=== PATIENT | male | born 1965 | race African-American/Black ===

== ENCOUNTER 2021-09-09 08:39 | Inpatient (IN) | payer MEDICAID ==
[~2021-09-09] VITALS: Ht 167.6 cm; Wt 81.2 kg
[~2021-09-09 08:39] MED LIST: ATEN-60; BENA40TA8; HYDR25TA4
[2021-09-09] MEDS ORDERED: ASPirin 325 MG TAB PO ONE (09:15)
[2021-09-09] MEDS ORDERED: NITROGLYCERIN 0.4 MG SL TAB SL ONE (09:15)
[2021-09-09 09:35] LABS: Basophils # (auto) 0 10 ^3/uL (0-0.2); Basophils % (auto) 0.3 % (0.0-2.0); Eosinophils # (auto) 0 10 ^3/uL (0-0.8); Eosinophils % (auto) 0.5 % (0.0-7.0); Hematocrit 31.9 % (41.0-53.0); Hemoglobin 10.4 g/dL (13.5-17.5); Lymphocytes # (auto) 0.2 10 ^3/uL (0.4-5.4); Lymphocytes % (auto) 3.5 % (10.0-50.0); Mean Corpuscular Hemoglobin 29.5 pg (28.0-32.0); Mean Corpuscular Hgb Conc. 32.7 g/dL (32.0-36.0); Mean Corpuscular Volume 90.2 fL (80.0-100.0); Monocytes # (auto) 0.7 10 ^3/uL (0-1.3); Monocytes % (auto) 10.7 % (0.0-12.0); Neutrophils # (auto) 5.3 10 ^3/uL (1.6-8.6); Nucleated Red Blood Cells % 0.1 %; Red Blood Cells 3.54 10^6/uL (4.5-5.90); White Blood Cell 6.3 10^3/uL (4.4-10.8)
[2021-09-09 09:57] LABS: Albumin 3.4 g/dL (3.4-5.0); Calcium 8.6 mg/dL (8.5-10.1); Magnesium 1.7 mg/dL (1.6-2.6); Partial Thromboplastin Time 26.6 sec (24.6-33.4); Potassium 4.1 mmol/L (3.5-5.1)
[2021-09-09] MEDS ORDERED: CARVEDILOL 3.125 MG TAB PO ONE (10:00)
[2021-09-09] MEDS ORDERED: amLODIPine BESYLATE 5 MG TAB PO ONE (10:00)
[2021-09-09 10:02] LABS: Bilirubin, Total 0.5 mg/dL (0.2-1.0)
[2021-09-09] MEDS ORDERED: SODIUM CHLORIDE 0.9% 1,000 ML IV ONE (10:30)
[2021-09-09] MEDS ORDERED: LABETALOL INJECTION 250 MG in SODIUM CHL 0.9% 200 ML IV ONE (11:30)
[2021-09-09] MEDS ORDERED: hydrALAZINE HCL 20 MG/ML VL IV ONE (12:15)
[2021-09-09] MEDS ORDERED: MORPHINE SULFATE INJ 2 MG/ml SYRG IV PRN (15:00)
[2021-09-09] MEDS ORDERED: ALBUTEROL SULF HFA 90MCG INH 200DOSE IN PRN (15:00)
[2021-09-09] MEDS ORDERED: NITROGLYCERIN 0.4 MG SL TAB SL PRN (15:00)
[2021-09-09 15:08] LABS: Magnesium 1.8 mg/dL (1.6-2.6); Phosphorus 4.1 mg/dL (2.5-4.90)
[2021-09-09] MEDS: hydrALAZINE HCL 20 MG/ML VL IV PRN (17:01)
[2021-09-09 20:00] VITALS: BP 178/109
[2021-09-09] MEDS: HEPARIN SODIUM (PORCINE) 5000 UNITS/ML 1ML VIAL SC SCH (20:10)
[2021-09-09 21:35] LABS: Basophils # (auto) 0 10 ^3/uL (0-0.2); Basophils % (auto) 0.6 % (0.0-2.0); Eosinophils # (auto) 0 10 ^3/uL (0-0.8); Eosinophils % (auto) 0.1 % (0.0-7.0); Hematocrit 35.3 % (41.0-53.0); Hemoglobin 11.6 g/dL (13.5-17.5); Lymphocytes # (auto) 0.3 10 ^3/uL (0.4-5.4); Mean Corpuscular Hemoglobin 29.1 pg (28.0-32.0); Mean Corpuscular Hgb Conc. 32.8 g/dL (32.0-36.0); Mean Corpuscular Volume 88.6 fL (80.0-100.0); Monocytes # (auto) 0.8 10 ^3/uL (0-1.3); Monocytes % (auto) 14.3 % (0.0-12.0); Neutrophils # (auto) 4.3 10 ^3/uL (1.6-8.6); Nucleated Red Blood Cells % 0.4 %; Red Blood Cells 3.99 10^6/uL (4.5-5.90); Red Cell Distribution Width 14.2 % (11.8-14.3); White Blood Cell 5.5 10^3/uL (4.4-10.8)
[2021-09-09 21:41] LABS: Albumin 3.4 g/dL (3.4-5.0)
[2021-09-09 21:45] LABS: Bilirubin, Total 0.5 mg/dL (0.2-1.0); CRP High Sensitivity 0.72 mg/dL (< 0.3); Total Protein 8.2 g/dL (6.4-8.2)
[2021-09-09 21:52] LABS: Thyroid Stimulating Hormone 0.69 uIU/mL (0.358-3.74)
[2021-09-09] MEDS ORDERED: CARVEDILOL 12.5 MG TAB PO ONE (22:00)
[2021-09-09 22:20] VITALS: BP 153/95
[2021-09-10] MEDS: hydrALAZINE HCL 20 MG/ML VL IV PRN ×2 (00:56→18:50)
[2021-09-10] MEDS: HEPARIN SODIUM (PORCINE) 5000 UNITS/ML 1ML VIAL SC SCH ×3 (05:22→22:53)
[2021-09-10 05:30] VITALS: BP 157/102
[2021-09-10 09:00] VITALS: BP 159/116
[2021-09-10] MEDS: AZITHROMYCIN 500MG/ 250ML 250 ML IV SCH (10:06)
[2021-09-10] MEDS: CARVEDILOL 12.5 MG TAB PO SCH ×2 (10:06→22:52)
[2021-09-10] MEDS: DexAMETHasone SOD PHOS 10MG/1ML VIAL INJ IV SCH (10:06)
[2021-09-10] MEDS ORDERED: ZINC SULFATE 220mg CAP or TAB PO ONE (12:45)
[2021-09-10] MEDS ORDERED: CHOLECALCIFEROL (VITD3) 2,000 UNIT CAP/TAB PO ONE (12:45)
[2021-09-10] MEDS ORDERED: amLODIPine BESYLATE 5 MG TAB PO ONE (12:45)
[2021-09-10 13:00] VITALS: BP 175/114
[2021-09-10 14:22] LABS: Basophils # (auto) 0 10 ^3/uL (0-0.2); Basophils % (auto) 0.5 % (0.0-2.0); Eosinophils # (auto) 0 10 ^3/uL (0-0.8); Hematocrit 36.1 % (41.0-53.0); Hemoglobin 11.5 g/dL (13.5-17.5); Lymphocytes # (auto) 0.4 10 ^3/uL (0.4-5.4); Lymphocytes % (auto) 6.5 % (10.0-50.0); Mean Corpuscular Hemoglobin 28.7 pg (28.0-32.0); Mean Corpuscular Volume 89.8 fL (80.0-100.0); Monocytes # (auto) 0.1 10 ^3/uL (0-1.3); Monocytes % (auto) 2.2 % (0.0-12.0); Neutrophils # (auto) 5.2 10 ^3/uL (1.6-8.6); Neutrophils % (auto) 90.8 % (37.0-80.0); Red Blood Cells 4.02 10^6/uL (4.5-5.90); Red Cell Distribution Width 14.1 % (11.8-14.3); White Blood Cell 5.7 10^3/uL (4.4-10.8)
[2021-09-10 14:29] LABS: Albumin 3.1 g/dL (3.4-5.0); BUN/Creatinine Ratio 9.5; Calcium 8.3 mg/dL (8.5-10.1)
[2021-09-10 14:33] LABS: Bilirubin, Total 0.4 mg/dL (0.2-1.0); Total Protein 7.4 g/dL (6.4-8.2)
[2021-09-10 17:00] VITALS: BP 174/116
[2021-09-10 22:00] VITALS: BP 163/102
[2021-09-10] MEDS ORDERED: ACETAMINOPHEN 325 MG TAB PO PRN (22:30)
[2021-09-10] MEDS: ASCORBIC ACID 500 MG TAB PO SCH (22:51)
[2021-09-10] MEDS: METOPROLOL TARTRATE 50 MG TAB PO SCH (22:52)
[2021-09-11 05:00] VITALS: BP 150/99
[2021-09-11] MEDS: HEPARIN SODIUM (PORCINE) 5000 UNITS/ML 1ML VIAL SC SCH ×4 (06:12→21:44)
[2021-09-11 07:12] LABS: Calcium 8.8 mg/dL (8.5-10.1); Phosphorus 4.4 mg/dL (2.5-4.90); Potassium 4.3 mmol/L (3.5-5.1)
[2021-09-11 07:18] LABS: % Iron Saturation 40.3 % (20-55)
[2021-09-11 09:00] VITALS: BP 166/101
[2021-09-11] MEDS: ZINC SULFATE 220mg CAP or TAB PO SCH (09:47)
[2021-09-11] MEDS: DexAMETHasone SOD PHOS 10MG/1ML VIAL INJ IV SCH (09:47)
[2021-09-11] MEDS: AZITHROMYCIN 500MG/ 250ML 250 ML IV SCH (09:47)
[2021-09-11] MEDS: CARVEDILOL 12.5 MG TAB PO SCH ×2 (09:48→21:59)
[2021-09-11] MEDS: amLODIPine BESYLATE 5 MG TAB PO SCH (09:49)
[2021-09-11] MEDS: ASCORBIC ACID 500 MG TAB PO SCH ×2 (09:49→21:58)
[2021-09-11] MEDS: METOPROLOL TARTRATE 50 MG TAB PO SCH (09:49)
[2021-09-11] MEDS: CHOLECALCIFEROL (VITD3) 2,000 UNIT CAP/TAB PO SCH (09:50)
[2021-09-11 11:58] LABS: Hepatitis B Surface Antibody Negative (Negative)
[2021-09-11 12:36] LABS: Hepatitis A Total Antibody Negative (Negative)
[2021-09-11 13:00] VITALS: BP 160/106
[2021-09-11 13:18] LABS: Hepatitis C Antibody Negative (Negative)
[2021-09-11 17:00] VITALS: BP 127/90
[2021-09-11] MEDS ORDERED: AMLO-496 PO (18:04)
[2021-09-11] MEDS ORDERED: CARV3.1240 PO (18:04)
[2021-09-11 22:00] VITALS: BP 143/97
[2021-09-12 05:00] VITALS: BP 139/85
[2021-09-12 08:06] LABS: Immunoglobulin G, Serum 1348 mg/dL (603-1613)
[2021-09-12 09:00] VITALS: BP 147/87
[2021-09-12] MEDS: ZINC SULFATE 220mg CAP or TAB PO SCH (10:48)
[2021-09-12] MEDS: ASCORBIC ACID 500 MG TAB PO SCH ×2 (10:48→21:57)
[2021-09-12] MEDS: AZITHROMYCIN 500MG/ 250ML 250 ML IV SCH (10:48)
[2021-09-12] MEDS: CHOLECALCIFEROL (VITD3) 2,000 UNIT CAP/TAB PO SCH (10:48)
[2021-09-12] MEDS: CARVEDILOL 12.5 MG TAB PO SCH ×2 (10:49→21:58)
[2021-09-12] MEDS: DexAMETHasone SOD PHOS 10MG/1ML VIAL INJ IV SCH (10:50)
[2021-09-12] MEDS: amLODIPine BESYLATE 5 MG TAB PO SCH (10:54)
[2021-09-12] MEDS ORDERED: LIDOCAINE 2%HCL (LOCAL ANESTH.) INJ 20ML MDV ONE ×2 (12:25→12:32)
[2021-09-12] MEDS ORDERED: HEPARIN SODIUM (PORCINE) 5000 UNITS/ML 1ML VIAL ONE (12:35)
[2021-09-12] MEDS ORDERED: fentaNYL CITRATE 100 MCG/2 ML VL ONE (12:35)
[2021-09-12] MEDS ORDERED: MIDAZOLAM HCL 2MG/2ML 2ml VIAL (1mg/ml) ONE (12:35)
[2021-09-12 16:41] VITALS: BP 126/85
[2021-09-12] MEDS: HEPARIN SODIUM (PORCINE) 5000 UNITS/ML 1ML VIAL SC SCH ×2 (17:18→21:57)
[2021-09-12] MEDS ORDERED: SODIUM CHL 0.9% 1000 ML BAG XX ONE (17:30)
[2021-09-12 22:00] VITALS: BP 135/91
[2021-09-13 05:00] VITALS: BP 122/83
[2021-09-13] MEDS: HEPARIN SODIUM (PORCINE) 5000 UNITS/ML 1ML VIAL SC SCH ×2 (07:05→14:00)
[2021-09-13] MEDS: DexAMETHasone SOD PHOS 10MG/1ML VIAL INJ IV SCH (08:40)
[2021-09-13] MEDS: ZINC SULFATE 220mg CAP or TAB PO SCH (08:42)
[2021-09-13] MEDS: CHOLECALCIFEROL (VITD3) 2,000 UNIT CAP/TAB PO SCH (08:43)
[2021-09-13] MEDS: amLODIPine BESYLATE 5 MG TAB PO SCH (08:43)
[2021-09-13] MEDS: CARVEDILOL 12.5 MG TAB PO SCH (08:45)
[2021-09-13] MEDS: ASCORBIC ACID 500 MG TAB PO SCH (08:45)
[2021-09-13 09:00] VITALS: BP 134/95
[2021-09-13] MEDS ORDERED: AZITHROMYCIN 250 MG TAB PO SCH (10:00)
[2021-09-13] MEDS ORDERED: AMLO-496 PO (10:05)
[2021-09-13] MEDS ORDERED: CHOL20007 PO (10:05)
[2021-09-13] MEDS ORDERED: CARV6.25 PO (10:05)
[2021-09-13] MEDS ORDERED: ZINC220C10 PO (10:05)
[2021-09-13] MEDS ORDERED: AZIT500T66 PO (10:05)
[2021-09-13] MEDS ORDERED: ASCO500T11 PO (10:05)
[2021-09-13 10:46] VITALS: BP 136/74
[2021-09-14] MEDS ORDERED: SODIUM CHL 0.9% 1000 ML BAG XX ONE (07:00)
== END 2021-09-13 18:36 | disposition home or self-care (01) | DRG 137 ==
LOC: ER 08:39 → TELE 14:51 → TELE-WESTW 19:42
PROVIDERS: ADMIT Registered Nurse; ATTEND Family Medicine
PROC: 0JH63XZ Insertion of Tunneled Vascular Access Device into Chest Subcutaneous Tissue and Fascia, Percutaneous Approach (ICD-10-PCS; principal; 2021-09-12)
PROC: 02H633Z Insertion of Infusion Device into Right Atrium, Percutaneous Approach (ICD-10-PCS; 2021-09-12)
PROC: B5181ZA Fluoroscopy of Superior Vena Cava using Low Osmolar Contrast, Guidance (ICD-10-PCS; 2021-09-12)
PROC: B548ZZA Ultrasonography of Superior Vena Cava, Guidance (ICD-10-PCS; 2021-09-12)
PROC: 5A1D70Z Performance of Urinary Filtration, Intermittent, Less than 6 Hours Per Day (ICD-10-PCS; 2021-09-12)
DX: U07.1 COVID-19 (principal); J96.00 Acute respiratory failure, unspecified whether with hypoxia or hypercapnia; N17.0 Acute kidney failure with tubular necrosis; J12.82 Pneumonia due to coronavirus disease 2019; E87.2 Acidosis; D69.6 Thrombocytopenia, unspecified; D63.1 Anemia in chronic kidney disease; N18.4 Chronic kidney disease, stage 4 (severe); I50.9 Heart failure, unspecified; I13.0 Hypertensive heart and chronic kidney disease with heart failure and stage 1 through stage 4 chronic kidney disease, or unspecified chronic kidney disease; I16.9 Hypertensive crisis, unspecified; E78.5 Hyperlipidemia, unspecified; Z91.19 Patient's noncompliance with other medical treatment and regimen
CPT/HCPCS: 36415; 36558; 70450; 71045; 71250; 76000; 76775; 76942; 77001; 80048; 80053; 80061; 82306; 82728; 82784; 83036; 83540; 83550; 83605; 83615; 83735; 83880; 83970; 84100; 84443; 84484; 85025; 85379; 85610; 85730; 86141; 86334; 86704; 86706; 86708; 86803; 87340; 90935; 93005; 93306; 93970; 96361; 96374; 99152; 99153; G0378; J1100; J1642; J2250

== ENCOUNTER 2021-12-03 10:24 | Emergency (ER) | payer MEDICAID ==
[~2021-12-03] VITALS: Ht 167.6 cm; Wt 80.0 kg
[~2021-12-03 10:24] MED LIST changes: +AMLO-496 PO; +ASCO500T11 PO; -ATEN-60; +AZIT500T66 PO; -BENA40TA8; +CARV3.1240 PO; +CARV6.25 PO; +CHOL20007 PO; -HYDR25TA4; +ZINC220C10 PO
[2021-12-03 14:04] VITALS: BP 146/106
[2021-12-03] MEDS ORDERED: HYDROcodone-ACET 10/325MG TAB PO ONE (14:45)
[2021-12-03] MEDS ORDERED: HYDR-4798 PO (14:56)
== END 2021-12-03 15:12 | disposition home or self-care (01) ==
LOC: ER 10:24
DX: S33.5XXA Sprain of ligaments of lumbar spine, initial encounter (principal); S93.401A Sprain of unspecified ligament of right ankle, initial encounter; I13.2 Hypertensive heart and chronic kidney disease with heart failure and with stage 5 chronic kidney disease, or end stage renal disease; N18.6 End stage renal disease; I50.9 Heart failure, unspecified; Z99.2 Dependence on renal dialysis; Z79.2 Long term (current) use of antibiotics; Z79.899 Other long term (current) drug therapy; W10.9XXA Fall (on) (from) unspecified stairs and steps, initial encounter; Y93.89 Activity, other specified; Y92.89 Other specified places as the place of occurrence of the external cause; Y99.8 Other external cause status
CPT/HCPCS: 72110; 73610

== ENCOUNTER → 2022-03-07 | Outpatient (CLI) | payer MEDICAID ==
[~2022-03-07] MED LIST changes: +HYDR-4798 PO
== END | disposition home or self-care (01) ==
LOC: Rad HDHVI 08:55
PROVIDERS: ATTEND Internal Medicine Cardiovascular Disease
DX: I50.22 Chronic systolic (congestive) heart failure (principal); R06.02 Shortness of breath
CPT/HCPCS: 93306

== ENCOUNTER → 2022-03-09 | Outpatient (CLI) | payer MEDICAID ==
[~2022-03-09] VITALS: Ht 167.6 cm; Wt 82.1 kg
[~2022-03-09] MED LIST changes: +ADENOSINE 69 MG in GIVE UN-DILUTED 0 ML IV ONE; +ADENOSINE 90 MG/30 ML INJ IV ONE; +CALC10TA PO; +CINA30TA14 PO; +FERR1TAB17 PO; +FURO40TA4 PO; +PANT40T PO
== END | disposition home or self-care (01) ==
LOC: Rad HDHVI 08:56
PROVIDERS: ATTEND Internal Medicine Cardiovascular Disease
DX: Z01.810 Encounter for preprocedural cardiovascular examination (principal); I13.2 Hypertensive heart and chronic kidney disease with heart failure and with stage 5 chronic kidney disease, or end stage renal disease; N18.6 End stage renal disease; I50.22 Chronic systolic (congestive) heart failure; R06.02 Shortness of breath; Z99.2 Dependence on renal dialysis
CPT/HCPCS: 78452; 93005; 96374; 96375; A9500; J0153

== ENCOUNTER 2022-03-22 15:50 | Inpatient (IN) | payer MEDICAID ==
[~2022-03-22] VITALS: Ht 167.6 cm; Wt 82.8 kg
[~2022-03-22 15:50] MED LIST changes: -ADENOSINE 69 MG in GIVE UN-DILUTED 0 ML IV ONE; -ADENOSINE 90 MG/30 ML INJ IV ONE; -CALC10TA PO; -CINA30TA14 PO; -FERR1TAB17 PO; -FURO40TA4 PO; -PANT40T PO
[2022-03-22] MEDS ORDERED: hydrALAZINE HCL 20 MG/ML VL IV ONE (17:00)
[2022-03-22 18:25] LABS: Albumin 3.5 g/dL (3.4-5.0); Potassium 4.5 mmol/L (3.5-5.1)
[2022-03-22 18:26] LABS: BUN/Creatinine Ratio 6.6
[2022-03-22 18:29] LABS: Bilirubin, Total 0.5 mg/dL (0.2-1.0); Total Protein 7.5 g/dL (6.4-8.2)
[2022-03-22 18:34] LABS: Basophils # (auto) 0 10 ^3/uL (0-0.2); Basophils % (auto) 0.6 % (0.0-2.0); Eosinophils # (auto) 0.1 10 ^3/uL (0-0.8); Eosinophils % (auto) 1.4 % (0.0-7.0); Hematocrit 37.2 % (41.0-53.0); Hemoglobin 12.6 g/dL (13.5-17.5); Lymphocytes # (auto) 1.2 10 ^3/uL (0.4-5.4); Lymphocytes % (auto) 19.8 % (10.0-50.0); Mean Corpuscular Hemoglobin 31.7 pg (28.0-32.0); Mean Corpuscular Hgb Conc. 33.8 g/dL (32.0-36.0); Mean Corpuscular Volume 93.8 fL (80.0-100.0); Monocytes # (auto) 0.5 10 ^3/uL (0-1.3); Monocytes % (auto) 7.6 % (0.0-12.0); Neutrophils # (auto) 4.3 10 ^3/uL (1.6-8.6); Neutrophils % (auto) 70.6 % (37.0-80.0); Nucleated Red Blood Cells % 0.2 %; Red Blood Cells 3.96 10^6/uL (4.5-5.90); Red Cell Distribution Width 16.6 % (11.8-14.3); White Blood Cell 6.1 10^3/uL (4.4-10.8)
[2022-03-22 18:39] LABS: INR 0.97 (0.9-1.15)
[2022-03-22] MEDS ORDERED: SODIUM CHLORIDE 0.9% 1,000 ML IV ONE (18:45)
[2022-03-23 00:11] LABS: Urine Bacteria FEW /hpf (None Seen); Urine Blood Negative /uL (Negative); Urine Hyaline Cast FEW /lpf (0 - 2); Urine WBC 2 /hpf (0 - 3)
[2022-03-23] MEDS ORDERED: DOCUSATE SOD 100 MG CAP PO PRN (00:15)
[2022-03-23] MEDS ORDERED: ONDANSETRON HCL 4 MG/2 ML VIAL IV PRN (00:15)
[2022-03-23] MEDS ORDERED: ACETAMINOPHEN 325 MG TAB PO PRN (00:15)
[2022-03-23 00:24] LABS: Alcohol, Urine < 3.0 mg/dL (0-10); Amphetamine Screen, Urine NEGATIVE (NEGATIVE); Barbiturate Scree,Urine NEGATIVE (NEGATIVE); Benzodiazephine Screen, Urine NEGATIVE (NEGATIVE); Cannabinoid Screen, Urine NEGATIVE (NEGATIVE); Cocaine Screen, Urine NEGATIVE (NEGATIVE); Opiate Scree,Urine NEGATIVE (NEGATIVE); Phencyclidine Screen, Urine NEGATIVE (NEGATIVE)
[2022-03-23] MEDS: HYDROcodone-ACET 5/325MG TAB PO PRN ×2 (00:24→19:03)
[2022-03-23] MEDS ORDERED: NITROGLYCERIN 0.4 MG SL TAB SL PRN (00:45)
[2022-03-23] MEDS ORDERED: MORPHINE SULFATE INJ 2 MG/ml SYRG IV PRN (00:45)
[2022-03-23 05:57] LABS: Basophils # (auto) 0 10 ^3/uL (0-0.2); Basophils % (auto) 0.4 % (0.0-2.0); Eosinophils # (auto) 0.1 10 ^3/uL (0-0.8); Eosinophils % (auto) 0.7 % (0.0-7.0); Hematocrit 35.8 % (41.0-53.0); Lymphocytes # (auto) 1.4 10 ^3/uL (0.4-5.4); Lymphocytes % (auto) 17.8 % (10.0-50.0); Mean Corpuscular Hemoglobin 31.8 pg (28.0-32.0); Mean Corpuscular Hgb Conc. 33.6 g/dL (32.0-36.0); Mean Corpuscular Volume 94.8 fL (80.0-100.0); Monocytes # (auto) 0.9 10 ^3/uL (0-1.3); Monocytes % (auto) 11.4 % (0.0-12.0); Neutrophils # (auto) 5.6 10 ^3/uL (1.6-8.6); Neutrophils % (auto) 69.7 % (37.0-80.0); Nucleated Red Blood Cells % 0.2 %; Red Blood Cells 3.77 10^6/uL (4.5-5.90); Red Cell Distribution Width 16.6 % (11.8-14.3); White Blood Cell 8.1 10^3/uL (4.4-10.8)
[2022-03-23] MEDS: SODIUM CHLOR 0.9% PF (SALINE LOCK) 10ML VIAL/SYR IV SCH ×3 (06:00→23:29)
[2022-03-23 06:17] LABS: Potassium 4.1 mmol/L (3.5-5.1)
[2022-03-23 06:26] LABS: Albumin 3.4 g/dL (3.4-5.0); BUN/Creatinine Ratio 7.1; Bilirubin, Total 0.8 mg/dL (0.2-1.0); Calcium 8.8 mg/dL (8.5-10.1); Total Protein 7.1 g/dL (6.4-8.2)
[2022-03-23] MEDS: SEVELAMER 800 MG TAB PO SCH ×3 (08:48→18:20)
[2022-03-23] MEDS: ASPirin 81 mg TAB PO SCH (11:18)
[2022-03-23] MEDS: CARVEDILOL 3.125 MG TAB PO SCH ×2 (11:19→23:23)
[2022-03-23] MEDS: FAMOTIDINE (10MG/ML) 2ML VL IV SCH (11:19)
[2022-03-23] MEDS: B-COMPLEX W/ C & FOLIC ACID(NEPHROVITE TAB) PO SCH (11:19)
[2022-03-23] MEDS: hydrALAZINE HCL 20 MG/ML VL IV PRN ×2 (16:48→23:29)
[2022-03-23 22:00] VITALS: BP 173/118
[2022-03-23] MEDS ORDERED: FERR1TAB17 PO (22:13)
[2022-03-23] MEDS ORDERED: CALC10TA PO (22:13)
[2022-03-23] MEDS ORDERED: CINA30TA14 PO (22:13)
[2022-03-23] MEDS ORDERED: FURO40TA4 PO (22:13)
[2022-03-23] MEDS ORDERED: PANT40T PO (22:13)
[2022-03-24 05:00] VITALS: BP 147/93
[2022-03-24 05:36] LABS: Basophils # (auto) 0 10 ^3/uL (0-0.2); Basophils % (auto) 0.3 % (0.0-2.0); Eosinophils # (auto) 0.1 10 ^3/uL (0-0.8); Eosinophils % (auto) 2.1 % (0.0-7.0); Hematocrit 36.2 % (41.0-53.0); Hemoglobin 12.1 g/dL (13.5-17.5); Lymphocytes % (auto) 13.6 % (10.0-50.0); Mean Corpuscular Hemoglobin 31.5 pg (28.0-32.0); Mean Corpuscular Hgb Conc. 33.3 g/dL (32.0-36.0); Mean Corpuscular Volume 94.4 fL (80.0-100.0); Monocytes # (auto) 0.5 10 ^3/uL (0-1.3); Monocytes % (auto) 7.8 % (0.0-12.0); Neutrophils # (auto) 5.3 10 ^3/uL (1.6-8.6); Neutrophils % (auto) 76.2 % (37.0-80.0); Nucleated Red Blood Cells % 0.1 %; Red Blood Cells 3.83 10^6/uL (4.5-5.90); Red Cell Distribution Width 16.5 % (11.8-14.3)
[2022-03-24] MEDS: SODIUM CHLOR 0.9% PF (SALINE LOCK) 10ML VIAL/SYR IV SCH ×3 (05:37→22:34)
[2022-03-24 05:58] LABS: Potassium 4.9 mmol/L (3.5-5.1)
[2022-03-24 06:01] LABS: % Iron Saturation 22.5 % (20-55)
[2022-03-24 06:08] LABS: Albumin 3.4 g/dL (3.4-5.0); BUN/Creatinine Ratio 7.4; Bilirubin, Total 0.5 mg/dL (0.2-1.0); Calcium 8.8 mg/dL (8.5-10.1); Phosphorus 4.2 mg/dL (2.5-4.90); Total Protein 7.1 g/dL (6.4-8.2)
[2022-03-24] MEDS ORDERED: SODIUM CHL 0.9% 1000 ML BAG XX ONE (07:00)
[2022-03-24] MEDS: SEVELAMER 800 MG TAB PO SCH ×3 (08:00→18:00)
[2022-03-24 09:00] VITALS: BP_SYST 116; BP_SYST 179; BP_DIAS 113; BP_DIAS 124
[2022-03-24] MEDS: ASPirin 81 mg TAB PO SCH (10:00)
[2022-03-24] MEDS: FAMOTIDINE (10MG/ML) 2ML VL IV SCH (10:00)
[2022-03-24] MEDS: CARVEDILOL 3.125 MG TAB PO SCH ×2 (10:00→22:33)
[2022-03-24] MEDS: B-COMPLEX W/ C & FOLIC ACID(NEPHROVITE TAB) PO SCH (10:00)
[2022-03-24] MEDS: amLODIPine BESYLATE 5 MG TAB PO SCH (10:00)
[2022-03-24] MEDS ORDERED: CATHFLO ACTIVASE (ALTEPLASE) 2 MG VIAL IV ONE (11:15)
[2022-03-24] MEDS: HYDROcodone-ACET 5/325MG TAB PO PRN (16:15)
[2022-03-24 17:00] VITALS: BP 180/121
[2022-03-24 21:59] VITALS: BP 153/96
[2022-03-25 05:00] VITALS: BP 130/88
[2022-03-25 06:10] LABS: Potassium 4.9 mmol/L (3.5-5.1)
[2022-03-25] MEDS: SODIUM CHLOR 0.9% PF (SALINE LOCK) 10ML VIAL/SYR IV SCH ×3 (06:11→21:53)
[2022-03-25 06:15] LABS: BUN/Creatinine Ratio 6.9
[2022-03-25 08:30] VITALS: BP 152/98
[2022-03-25] MEDS: SEVELAMER 800 MG TAB PO SCH ×3 (10:03→18:24)
[2022-03-25] MEDS: FAMOTIDINE (10MG/ML) 2ML VL IV SCH (10:03)
[2022-03-25] MEDS: ASPirin 81 mg TAB PO SCH (10:03)
[2022-03-25] MEDS: B-COMPLEX W/ C & FOLIC ACID(NEPHROVITE TAB) PO SCH (10:04)
[2022-03-25] MEDS: CARVEDILOL 3.125 MG TAB PO SCH ×3 (10:04→21:52)
[2022-03-25] MEDS: amLODIPine BESYLATE 5 MG TAB PO SCH (10:05)
[2022-03-25 13:00] VITALS: BP 137/106
[2022-03-25] MEDS: LOSARTAN POTASSIUM 25 MG TAB PO SCH (13:01)
[2022-03-25 17:04] VITALS: BP 139/87
[2022-03-25 20:00] VITALS: BP 163/111
[2022-03-25 22:00] VITALS: BP 163/111
[2022-03-26 05:00] VITALS: BP 142/91
[2022-03-26] MEDS: SODIUM CHLOR 0.9% PF (SALINE LOCK) 10ML VIAL/SYR IV SCH ×2 (06:00→14:00)
[2022-03-26 07:07] LABS: BUN/Creatinine Ratio 7.1; Calcium 8.8 mg/dL (8.5-10.1); Potassium 4.9 mmol/L (3.5-5.1)
[2022-03-26] MEDS: SEVELAMER 800 MG TAB PO SCH ×2 (08:00→12:00)
[2022-03-26] MEDS ORDERED: LIDOCAINE VISCOUS 2% 15ML UD ONE (08:03)
[2022-03-26] MEDS ORDERED: SUCCINYLCHOLINE CHLORIDE 20 MG/ML 10ML VIAL IV ONE (08:10)
[2022-03-26] MEDS ORDERED: MIDAZOLAM HCL 2MG/2ML 2ml VIAL (1mg/ml) ONE (08:12)
[2022-03-26] MEDS ORDERED: fentaNYL CITRATE 100 MCG/2 ML VL ONE (08:12)
[2022-03-26] MEDS ORDERED: PROPOFOL 10 MG/ML 20 ML IV ONE (08:12)
[2022-03-26] MEDS ORDERED: KETAMINE HCL 10 ML ONE (08:12)
[2022-03-26] MEDS ORDERED: SODIUM CHLORIDE LOCK 10 ML ONE (08:12)
[2022-03-26] MEDS ORDERED: MORPHINE SULFATE INJ 2 MG/ml SYRG IV PRN (08:45)
[2022-03-26] MEDS ORDERED: HYDROmorphone HCL 2 MG/ML VL/or syr IV PRN ×2 (08:45)
[2022-03-26] MEDS ORDERED: METOCLOPRAMIDE HCL 5MG/ml INJ 2ml VIAL IV PRN (08:45)
[2022-03-26] MEDS ORDERED: amLODIPine BESYLATE 5 MG TAB PO SCH (10:00)
[2022-03-26] MEDS: FAMOTIDINE (10MG/ML) 2ML VL IV SCH (10:42)
[2022-03-26] MEDS: ASPirin 81 mg TAB PO SCH (10:43)
[2022-03-26] MEDS: CARVEDILOL 3.125 MG TAB PO SCH (10:43)
[2022-03-26] MEDS: B-COMPLEX W/ C & FOLIC ACID(NEPHROVITE TAB) PO SCH (10:43)
[2022-03-26] MEDS: LOSARTAN POTASSIUM 25 MG TAB PO SCH (10:43)
[2022-03-26] MEDS: SUCRALFATE 1 GM/10 ML ORAL SUSP PO SCH ×2 (11:30→16:31)
[2022-03-26 11:50] VITALS: BP 143/96
[2022-03-26] MEDS ORDERED: DOCUSATE SOD 100 MG CAP PO SCH (12:45)
[2022-03-26] MEDS ORDERED: CAR3125T PO (14:41)
[2022-03-26] MEDS ORDERED: SUCR1SUS10 PO (14:41)
[2022-03-26] MEDS ORDERED: PANT40T PO (14:41)
[2022-03-26 14:49] LABS: Hepatitis B Core IgM Negative; Hepatitis C Antibody Negative (Negative)
[2022-03-26 14:53] LABS: Hepatitis A Ab IgM Positive
[2022-03-26 16:46] VITALS: BP 141/92
[2022-03-26 16:54] VITALS: BP 141/92
[2022-03-26] MEDS ORDERED: PANTOPRAZOLE 40 MG TAB PO SCH (22:00)
[2022-03-27] MEDS ORDERED: SODIUM CHL 0.9% 1000 ML BAG XX ONE (07:00)
== END 2022-03-26 17:36 | disposition home or self-care (01) | DRG 241 ==
LOC: ER 15:50 → TELE 03-23 00:47 → TELE-WESTW 03-23 20:00
PROVIDERS: ADMIT Nurse Practitioner Family; ATTEND Student in an Organized Health Care Education/Training Program
PROC: 5A1D70Z Performance of Urinary Filtration, Intermittent, Less than 6 Hours Per Day (ICD-10-PCS; 2022-03-24)
PROC: 0DB68ZX Excision of Stomach, Via Natural or Artificial Opening Endoscopic, Diagnostic (ICD-10-PCS; 2022-03-26)
PROC: 0DB98ZX Excision of Duodenum, Via Natural or Artificial Opening Endoscopic, Diagnostic (ICD-10-PCS; principal; 2022-03-26 08:49)
DX: K25.4 Chronic or unspecified gastric ulcer with hemorrhage (principal); I13.2 Hypertensive heart and chronic kidney disease with heart failure and with stage 5 chronic kidney disease, or end stage renal disease; E83.39 Other disorders of phosphorus metabolism; N18.6 End stage renal disease; I50.9 Heart failure, unspecified; I16.1 Hypertensive emergency; I25.10 Atherosclerotic heart disease of native coronary artery without angina pectoris; K29.91 Gastroduodenitis, unspecified, with bleeding; K44.9 Diaphragmatic hernia without obstruction or gangrene; K59.00 Constipation, unspecified; Z20.822 Contact with and (suspected) exposure to COVID-19; E87.5 Hyperkalemia; R94.39 Abnormal result of other cardiovascular function study; Z99.2 Dependence on renal dialysis
CPT/HCPCS: 36415; 71045; 71250; 74176; 80048; 80053; 80074; 80307; 81001; 82270; 82306; 82728; 83540; 83550; 83690; 83880; 83970; 84100; 84484; 85025; 85610; 87081; 87426; 90935; 93005; 96361; 96374; 96375; 96376; G0378; J0330; J1642; J2250; J2704; J3490

== ENCOUNTER 2022-09-05 17:02 | Inpatient (IN) | payer MEDICAID ==
[~2022-09-05] VITALS: Ht 167.6 cm; Wt 84.8 kg
[~2022-09-05 17:02] MED LIST changes: -AMLO-496 PO; +AMLO1TAB23 PO; -ASCO500T11 PO; -AZIT500T66 PO; +CALC10TA PO; +CAR3125T PO; -CARV6.25 PO; -CHOL20007 PO; +CINA30TA14 PO; +FERR1TAB17 PO; +FURO40TA4 PO; +PANT40T PO; +SUCR1SUS26 PO; -ZINC220C10 PO
[2022-09-05] MEDS ORDERED: hydrALAZINE HCL 20 MG/ML VL IV ONE (17:30)
[2022-09-05 17:55] LABS: Basophils # (auto) 0 10 ^3/uL (0-0.2); Basophils % (auto) 0.8 % (0.0-2.0); Eosinophils # (auto) 0.2 10 ^3/uL (0-0.8); Eosinophils % (auto) 3.5 % (0.0-7.0); Hematocrit 36.1 % (41.0-53.0); Hemoglobin 11.8 g/dL (13.5-17.5); Lymphocytes # (auto) 0.9 10 ^3/uL (0.4-5.4); Lymphocytes % (auto) 17.5 % (10.0-50.0); Mean Corpuscular Hemoglobin 32.1 pg (28.0-32.0); Mean Corpuscular Hgb Conc. 32.7 g/dL (32.0-36.0); Mean Corpuscular Volume 98.2 fL (80.0-100.0); Monocytes # (auto) 0.5 10 ^3/uL (0-1.3); Monocytes % (auto) 10.5 % (0.0-12.0); Neutrophils # (auto) 3.4 10 ^3/uL (1.6-8.6); Neutrophils % (auto) 67.7 % (37.0-80.0); Nucleated Red Blood Cells % 0.1 %; Red Blood Cells 3.68 10^6/uL (4.5-5.90); Red Cell Distribution Width 15.7 % (11.8-14.3); White Blood Cell 5.1 10^3/uL (4.4-10.8)
[2022-09-05 18:12] LABS: INR 1.01 (0.9-1.15); Partial Thromboplastin Time 25.7 SEC (24.5-34.5)
[2022-09-05 18:20] LABS: Albumin 3.5 g/dL (3.4-5.0); Calcium 9.4 mg/dL (8.5-10.1); Magnesium 2.5 mg/dL (1.6-2.6); Potassium 4.9 mmol/L (3.5-5.1)
[2022-09-05 18:24] LABS: BUN/Creatinine Ratio 4.5 (10.0-20.0); Bilirubin, Total 0.5 mg/dL (0.2-1.0); Total Protein 6.8 g/dL (6.4-8.2)
[2022-09-05 18:58] LABS: Urine Bacteria NONE SEEN /hpf (None Seen); Urine Blood 1+ /uL (Negative); Urine Specific Gravity 1.011 (1.001-1.035); Urine WBC <1 /hpf (0 - 3)
[2022-09-05] MEDS ORDERED: LABETALOL HCL 5 MG/ML 4ML SYRINGE IV ONE (22:00)
[2022-09-06] VITALS: PULSE 65; RESP 12; O2SAT 97
[2022-09-06] MEDS ORDERED: NITROGLYCERIN 50MG/250ML 250 ML IV ONE
[2022-09-06] MEDS ORDERED: ENALAPRILAT 1.25 MG/ML-1ML VIAL IV ONE (00:15)
[2022-09-06] MEDS ORDERED: HYDROcodone-ACET 5/325MG TAB PO PRN (00:15)
[2022-09-06] MEDS ORDERED: NITROGLYCERIN 0.4 MG SL TAB SL PRN (00:15)
[2022-09-06] MEDS ORDERED: ACETAMINOPHEN 325 MG TAB PO PRN (00:15)
[2022-09-06 00:31] LABS: Hematocrit 34.7 % (41.0-53.0); Hemoglobin 11.6 g/dL (13.5-17.5)
[2022-09-06] MEDS: MORPHINE SULFATE INJ 2 MG/ml SYRG IV PRN ×2 (08:31→19:29)
[2022-09-06] MEDS: ONDANSETRON HCL 4 MG/2 ML VIAL IV PRN ×2 (08:31→19:29)
[2022-09-06] MEDS ORDERED: SODIUM CHL 0.9% 1000 ML BAG XX ONE (09:00)
[2022-09-06] MEDS: SEVELAMER 800 MG TAB PO SCH ×3 (09:34→20:19)
[2022-09-06] MEDS: CALCIUM ACETATE 667 MG CAP PO SCH ×2 (09:34→13:49)
[2022-09-06 09:46] LABS: BUN/Creatinine Ratio 4.8 (10.0-20.0); Calcium 9.5 mg/dL (8.5-10.1); Potassium 4.7 mmol/L (3.5-5.1)
[2022-09-06] MEDS ORDERED: PANTOPRAZOLE 40 MG TAB PO SCH (10:00)
[2022-09-06] MEDS: CARVEDILOL 3.125 MG TAB PO SCH ×2 (10:25→21:40)
[2022-09-06] MEDS: amLODIPine BESYLATE 5 MG TAB PO SCH (10:26)
[2022-09-06 10:41] LABS: Hematocrit 35.5 % (41.0-53.0); Hemoglobin 11.7 g/dL (13.5-17.5)
[2022-09-06 11:52] VITALS: PULSE 72; RESP 20; O2SAT 96
[2022-09-06 12:49] LABS: Hepatitis B Core IgM Negative
[2022-09-06 12:50] LABS: Hepatitis C Antibody Negative (Negative)
[2022-09-06 12:53] LABS: Hepatitis A Ab IgM Positive
[2022-09-06] MEDS ORDERED: SEVE800T8 PO (14:31)
[2022-09-06 14:35] LABS: Urine Bacteria NONE SEEN /hpf (None Seen); Urine Blood TRACE /uL (Negative); Urine Specific Gravity 1.009 (1.001-1.035); Urine WBC <1 /hpf (0 - 3)
[2022-09-06 18:17] LABS: Hematocrit 35.9 % (41.0-53.0); Hemoglobin 11.7 g/dL (13.5-17.5)
[2022-09-06 20:31] VITALS: PULSE 82; RESP 19; O2SAT 96
[2022-09-06 21:37] LABS: BUN/Creatinine Ratio 3.6 (10.0-20.0); Calcium 8.9 mg/dL (8.5-10.1); Potassium 4.6 mmol/L (3.5-5.1)
[2022-09-06] MEDS: hydrALAZINE HCL 25 MG TAB PO SCH (21:40)
[2022-09-06] MEDS: SUCRALFATE 1 GM TAB PO SCH (21:40)
[2022-09-06] MEDS: PANTOPRAZOLE 40 MG/10 ML VIAL INJ IV SCH (21:41)
[2022-09-06 22:17] VITALS: BP 174/104; PULSE 73; RESP 20; TEMP 97.6; O2SAT 98
[2022-09-07] VITALS (7 sets, daily range): BP systolic 150–171; BP diastolic 89–103; PULSE 20–80; RESP 18–22; TEMP 97.4–98.1; O2SAT 91–99
[2022-09-07 02:06] LABS: Hematocrit 34.1 % (41.0-53.0); Hemoglobin 11.3 g/dL (13.5-17.5)
[2022-09-07] MEDS: cloNIDine HCL 0.1 MG TAB PO PRN ×2 (05:36→16:53)
[2022-09-07] MEDS: SUCRALFATE 1 GM TAB PO SCH ×4 (06:28→22:05)
[2022-09-07 06:37] LABS: Basophils # (auto) 0 10 ^3/uL (0-0.2); Basophils % (auto) 0.7 % (0.0-2.0); Eosinophils # (auto) 0.2 10 ^3/uL (0-0.8); Eosinophils % (auto) 3.5 % (0.0-7.0); Hematocrit 35.3 % (41.0-53.0); Hemoglobin 11.6 g/dL (13.5-17.5); Lymphocytes # (auto) 0.8 10 ^3/uL (0.4-5.4); Lymphocytes % (auto) 14.1 % (10.0-50.0); Mean Corpuscular Hemoglobin 32.3 pg (28.0-32.0); Mean Corpuscular Hgb Conc. 32.8 g/dL (32.0-36.0); Mean Corpuscular Volume 98.4 fL (80.0-100.0); Monocytes # (auto) 0.6 10 ^3/uL (0-1.3); Neutrophils # (auto) 4.2 10 ^3/uL (1.6-8.6); Neutrophils % (auto) 71.7 % (37.0-80.0); Nucleated Red Blood Cells % 0.1 %; Red Blood Cells 3.59 10^6/uL (4.5-5.90); Red Cell Distribution Width 15.6 % (11.8-14.3); White Blood Cell 5.9 10^3/uL (4.4-10.8)
[2022-09-07 06:51] LABS: Potassium 5.3 mmol/L (3.5-5.1)
[2022-09-07 06:57] LABS: Albumin 3.1 g/dL (3.4-5.0); BUN/Creatinine Ratio 4.1 (10.0-20.0); Bilirubin, Total 0.3 mg/dL (0.2-1.0); Calcium 9.2 mg/dL (8.5-10.1); Total Protein 6.9 g/dL (6.4-8.2)
[2022-09-07] MEDS: SEVELAMER 800 MG TAB PO SCH ×3 (09:06→18:00)
[2022-09-07] MEDS: CARVEDILOL 3.125 MG TAB PO SCH (09:48)
[2022-09-07] MEDS: amLODIPine BESYLATE 5 MG TAB PO SCH (09:49)
[2022-09-07] MEDS: PANTOPRAZOLE 40 MG/10 ML VIAL INJ IV SCH ×2 (09:49→22:05)
[2022-09-07] MEDS: hydrALAZINE HCL 25 MG TAB PO SCH ×2 (09:49→22:06)
[2022-09-07] MEDS ORDERED: SODIUM CHL 0.9% 1000 ML BAG XX ONE (12:15)
[2022-09-07 12:33] LABS: Hematocrit 35.5 % (41.0-53.0); Hemoglobin 11.7 g/dL (13.5-17.5)
[2022-09-07] MEDS ORDERED: hydrALAZINE HCL 25 MG TAB PO SCH (14:00)
[2022-09-07 18:26] LABS: Hemoglobin 11.1 g/dL (13.5-17.5)
[2022-09-07] MEDS ORDERED: CARVEDILOL 12.5 MG TAB PO SCH (22:00)
[2022-09-07] MEDS ORDERED: hydrALAZINE HCL 10 MG TAB PO SCH (22:00)
[2022-09-08] VITALS (7 sets, daily range): BP systolic 143–166; BP diastolic 90–106; PULSE 71–85; RESP 12–20; TEMP 97.6–98.4; O2SAT 90–100
[2022-09-08] MEDS: SUCRALFATE 1 GM TAB PO SCH ×4 (06:14→21:58)
[2022-09-08] MEDS: hydrALAZINE HCL 25 MG TAB PO SCH ×3 (06:16→21:57)
[2022-09-08] MEDS: SEVELAMER 800 MG TAB PO SCH ×3 (07:59→17:57)
[2022-09-08] MEDS: ONDANSETRON HCL 4 MG/2 ML VIAL IV PRN (08:00)
[2022-09-08] MEDS: PANTOPRAZOLE 40 MG/10 ML VIAL INJ IV SCH ×2 (10:00→21:57)
[2022-09-08] MEDS: amLODIPine BESYLATE 5 MG TAB PO SCH (10:00)
[2022-09-08] MEDS: cloNIDine HCL 0.1 MG TAB PO PRN (12:56)
[2022-09-08] MEDS ORDERED: SODIUM CHL 0.9% 1000 ML BAG XX ONE (13:15)
[2022-09-08] MEDS: CARVEDILOL 12.5 MG TAB PO SCH (21:58)
[2022-09-09 05:00] VITALS: BP 141/90; PULSE 80; RESP 14; TEMP 97.7; O2SAT 93
[2022-09-09] MEDS: hydrALAZINE HCL 25 MG TAB PO SCH ×2 (06:06→16:51)
[2022-09-09] MEDS: SUCRALFATE 1 GM TAB PO SCH ×3 (06:06→16:45)
[2022-09-09 06:14] LABS: BUN/Creatinine Ratio 4.2 (10.0-20.0); Calcium 9.3 mg/dL (8.5-10.1); Potassium 5.3 mmol/L (3.5-5.1)
[2022-09-09 08:00] VITALS: PULSE 76; PULSE 84; RESP 18; O2SAT 94
[2022-09-09] MEDS: SEVELAMER 800 MG TAB PO SCH ×3 (08:00→17:32)
[2022-09-09] MEDS: ONDANSETRON HCL 4 MG/2 ML VIAL IV PRN (08:24)
[2022-09-09 08:40] VITALS: BP_SYST 154; BP_DIAS 9; BP_DIAS 92; PULSE 84; RESP 16; TEMP 98.4; O2SAT 94
[2022-09-09] MEDS: amLODIPine BESYLATE 5 MG TAB PO SCH (11:03)
[2022-09-09] MEDS: PANTOPRAZOLE 40 MG/10 ML VIAL INJ IV SCH (11:03)
[2022-09-09] MEDS: CARVEDILOL 12.5 MG TAB PO SCH (11:04)
[2022-09-09 13:00] VITALS: BP 131/83; PULSE 90; RESP 14; TEMP 98.3; O2SAT 95
[2022-09-09 17:00] VITALS: BP 155/87; PULSE 86; RESP 14; TEMP 97.7; O2SAT 94
[2022-09-09] MEDS ORDERED: SODIUM ZIRCONIUM CYCL 10 GM PAK PO ONE (17:15)
[2022-09-09] MEDS ORDERED: HYDR100T22 PO (17:23)
[2022-09-09] MEDS ORDERED: CARV25TA PO (17:23)
[2022-09-09 18:03] VITALS: BP 155/87; PULSE 86; RESP 14; TEMP 97.7; O2SAT 94
== END 2022-09-09 18:24 | disposition home or self-care (01) | DRG 199 ==
LOC: ER 17:02 → TELE 09-06 00:14 → TELE-WESTW 09-06 20:48
PROVIDERS: ADMIT Internal Medicine; ATTEND Student in an Organized Health Care Education/Training Program
PROC: 5A1D70Z Performance of Urinary Filtration, Intermittent, Less than 6 Hours Per Day (ICD-10-PCS; principal; 2022-09-06)
PROC: 5A1D70Z Performance of Urinary Filtration, Intermittent, Less than 6 Hours Per Day (ICD-10-PCS; 2022-09-08)
DX: I16.1 Hypertensive emergency (principal); N18.6 End stage renal disease; K25.4 Chronic or unspecified gastric ulcer with hemorrhage; D63.1 Anemia in chronic kidney disease; I50.9 Heart failure, unspecified; K29.91 Gastroduodenitis, unspecified, with bleeding; I13.2 Hypertensive heart and chronic kidney disease with heart failure and with stage 5 chronic kidney disease, or end stage renal disease; Z99.2 Dependence on renal dialysis; N28.1 Cyst of kidney, acquired; E87.5 Hyperkalemia; K44.9 Diaphragmatic hernia without obstruction or gangrene; Z79.899 Other long term (current) drug therapy
CPT/HCPCS: 36415; 74176; 76775; 80048; 80053; 80074; 81001; 82270; 83036; 83735; 83880; 84100; 84484; 85014; 85018; 85025; 85610; 85730; 86850; 86900; 86901; 90935; 93005; 96374; 96375; C9113; G0378; J1642; J2405; J3490

== ENCOUNTER 2022-11-11 10:17 | Emergency (ER) | payer MEDICAID ==
[~2022-11-11] VITALS: Ht 167.6 cm; Wt 78.4 kg
[~2022-11-11 10:17] MED LIST changes: -CALC10TA PO; -CAR3125T PO; +CARV25TA PO; -CARV3.1240 PO; -CINA30TA14 PO; +HYDR100T22 PO; +SEVE800T8 PO; -SUCR1SUS26 PO
[2022-11-11] MEDS ORDERED: ONDANSETRON HCL 4 MG/2 ML VIAL IV ONE (10:30)
[2022-11-11] MEDS ORDERED: SODIUM CHLORIDE 0.9% 1,000 ML IVB ONE (10:30)
[2022-11-11] MEDS ORDERED: PANTOPRAZOLE 40 MG/10 ML VIAL INJ IV ONE (10:30)
[2022-11-11 10:48] LABS: Basophils # (auto) 0.1 10 ^3/uL (0-0.2); Basophils % (auto) 1.2 % (0.0-2.0); Eosinophils # (auto) 0.2 10 ^3/uL (0-0.8); Hematocrit 32.5 % (41.0-53.0); Hemoglobin 10.3 g/dL (13.5-17.5); Lymphocytes # (auto) 0.6 10 ^3/uL (0.4-5.4); Lymphocytes % (auto) 10.5 % (10.0-50.0); Mean Corpuscular Hemoglobin 30.8 pg (28.0-32.0); Mean Corpuscular Hgb Conc. 31.7 g/dL (32.0-36.0); Mean Corpuscular Volume 97.1 fL (80.0-100.0); Monocytes # (auto) 0.7 10 ^3/uL (0-1.3); Monocytes % (auto) 11.8 % (0.0-12.0); Neutrophils # (auto) 4.2 10 ^3/uL (1.6-8.6); Neutrophils % (auto) 73.5 % (37.0-80.0); Red Blood Cells 3.35 10^6/uL (4.5-5.90); Red Cell Distribution Width 17.3 % (11.8-14.3); White Blood Cell 5.8 10^3/uL (4.4-10.8)
[2022-11-11 10:59] VITALS: TEMP 97.9
[2022-11-11 11:08] LABS: Alanine Aminotransferase 16 U/L (7-40); Albumin 4.2 g/dL (3.2-4.8); Alkaline Phosphatase 94 U/L (46-116); Anion Gap 8 (5-15); Aspartate Aminotransferase 19 U/L (13-40); BUN/Creatinine Ratio 2.7 (10.0-20.0); Blood Urea Nitrogen 24 mg/dL (9-23); Calcium 9.2 mg/dL (8.5-10.1); Carbon Dioxide 28 mmol/L (20-30); Chloride 103 mmol/L (98-107); Glucose 85 mg/dL (74-106); Potassium 4.1 mmol/L (3.5-5.1); Sodium 139 mmol/L (136-145)
[2022-11-11 11:09] LABS: Bilirubin, Total 0.6 mg/dL (0.2-1.0); Total Protein 7.6 g/dL (5.7-8.2)
[2022-11-11 12:37] LABS: INR 1.03 (0.9-1.15); Partial Thromboplastin Time 29.5 SEC (24.5-34.5); Prothrombin Time 10.8 sec (9.3-11.8)
[2022-11-11 13:30] LABS: Urine Bacteria NONE SEEN /hpf (None Seen); Urine Blood Negative /uL (Negative); Urine Clarity Clear (Clear); Urine Color Colorless (Yellow); Urine Protein, UAD 3+ (Negative); Urine Specific Gravity 1.009 (1.001-1.035); Urine Urobilinogen Normal (Negative); Urine WBC 1 /hpf (0 - 3); Urine pH 8.5 (5.0-8.0)
[2022-11-11 14:06] LABS: Basophils # (auto) 0.1 10 ^3/uL (0-0.2); Basophils % (auto) 0.9 % (0.0-2.0); Eosinophils # (auto) 0.2 10 ^3/uL (0-0.8); Eosinophils % (auto) 2.5 % (0.0-7.0); Hematocrit 31.7 % (41.0-53.0); Hemoglobin 10.3 g/dL (13.5-17.5); Lymphocytes # (auto) 0.7 10 ^3/uL (0.4-5.4); Lymphocytes % (auto) 11.4 % (10.0-50.0); Mean Corpuscular Hemoglobin 31.8 pg (28.0-32.0); Mean Corpuscular Hgb Conc. 32.5 g/dL (32.0-36.0); Monocytes # (auto) 0.7 10 ^3/uL (0-1.3); Neutrophils # (auto) 4.4 10 ^3/uL (1.6-8.6); Neutrophils % (auto) 73.2 % (37.0-80.0); Nucleated Red Blood Cells % 0.1 %; Red Blood Cells 3.24 10^6/uL (4.5-5.90); Red Cell Distribution Width 17.8 % (11.8-14.3)
[2022-11-11 16:11] LABS: Lipase 65 U/L (12-53)
[2022-11-11] MEDS ORDERED: PANT40TA2 PO (16:26)
[2022-11-11 16:54] VITALS: BP 140/98; PULSE 81; RESP 18; O2SAT 100
== END 2022-11-11 16:58 | disposition home or self-care (01) ==
LOC: ER 10:17
DX: R10.13 Epigastric pain (principal); R11.2 Nausea with vomiting, unspecified; R19.7 Diarrhea, unspecified; K92.1 Melena; R05.9 Cough, unspecified; I13.2 Hypertensive heart and chronic kidney disease with heart failure and with stage 5 chronic kidney disease, or end stage renal disease; N18.6 End stage renal disease; I50.9 Heart failure, unspecified; Z79.1 Long term (current) use of non-steroidal anti-inflammatories (NSAID); Z79.899 Other long term (current) drug therapy
CPT/HCPCS: 36415; 74176; 80053; 81001; 83605; 83690; 85025; 85610; 85730; 86850; 86900; 86901; 93005; 96361; 96374; 96375; 99285; C9113; J2405; J7030